=== PATIENT | female | born 1945 | race Caucasian/White ===

== ENCOUNTER → 2020-11-14 | Emergency (ER) | payer OTHER ==
[~2020-11-14] VITALS: Ht 152.4 cm; Wt 65.8 kg
[~2020-11-14] MED LIST: ATORVASTATIN CA10 MG; BENADRYL25 MG; CLONAZEPAM0.5 M1; COZAAR25 MG; PREVACID30 MG; PROZAC20 MG; ZETIA10 MG
== END | disposition left against medical advice (07) ==
LOC: ER 14:36
DX: Z53.20 Procedure and treatment not carried out because of patient's decision for unspecified reasons (principal)

== ENCOUNTER 2020-11-18 13:37 | Outpatient (CLI) | payer OTHER | END 2020-11-18 13:50 | disposition home or self-care (01) | LOC: RAD 13:37 | PROVIDERS: ATTEND Orthopaedic Surgery | DX: M25.571 Pain in right ankle and joints of right foot (principal); M25.572 Pain in left ankle and joints of left foot ==

== ENCOUNTER 2023-12-06 06:09 | Day surgery (SDC) | payer OTHER ==
[2023-11-29 14:29] LABS: HEMOGLOBIN 14.2 g/dL (12.0-15.00); MEAN CELL VOLUME 85.4 fL (80.00-100.00); MEAN CORPUSCULAR HEMOGLOBIN 28.9 pg (27.00-32.0); MEAN CORPUSCULAR HGB CONC 33.8 g/dl (32.0-36.0); PLATELET COUNT 199 K/uL (150-450); RED BLOOD COUNT 4.92 M/uL (4.00-6.00); RED CELL DISTRIBUTION WIDTH 14.9 % (11.5-14.5)
[2023-12-06] MEDS ORDERED: NALOXONE HCL 0.4 MG/ML AMPUL IV STA (11:30)
[2023-12-06] MEDS ORDERED: fentaNYL CITRATE 50 MCG/ML AMPUL IV PUSH ONE (11:30)
[2023-12-06] MEDS ORDERED: DIPHENHYDRAMINE HCL 50 MG/ML VIAL 1ML IV ONE (11:30)
[2023-12-06] MEDS ORDERED: MIDAZOLAM HCL 2 MG/2 ML VIAL IV ONE (11:30)
== END 2023-12-06 11:55 | disposition home or self-care (01) ==
LOC: AMB-ENDOS 06:09
PROVIDERS: ATTEND Colon & Rectal Surgery
DX: D12.0 Benign neoplasm of cecum (principal); K20.90 Esophagitis, unspecified without bleeding; Z91.041 Radiographic dye allergy status; Z88.6 Allergy status to analgesic agent; K57.30 Diverticulosis of large intestine without perforation or abscess without bleeding; K64.1 Second degree hemorrhoids